=== PATIENT | female | born 1995 | race Hispanic/Latino ===

== ENCOUNTER 2020-07-19 11:19 | Outpatient (RCR) | payer MEDICAID, SELFPAY ==
[2013-04-14 13:12] VITALS: BMI 18.1
== END 2020-08-28 23:59 ==
LOC: IMMUN 11:19
PROVIDERS: PCP Family Medicine; Referring Provider Family Medicine; Visit Provider Family Medicine
DX: Z23 Encounter for immunization (principal)
CPT/HCPCS: 0001A; 0002A; 91300